=== PATIENT | female | born 1945 | race Caucasian/White ===

== ENCOUNTER → 2019-11-08 15:24 | Outpatient (CLI) | payer OTHER, SELFPAY ==
--- NOTE | 2019-11-08 | DI.MRI.S_ITS ---
PROCEDURE: MR SHOULDER RT WO CON INDICATIONS: Strain of unspecified muscle, fascia and tendon TECHNIQUE: Noncontrast oblique coronal T2 fast spin echo with fat saturation, oblique sagittal T1 spin echo and T2 fast spin echo with fat saturation, axial T1 spin echo and T2 fast spin echo with fat saturation through the shoulder. COMPARISON: None. FINDINGS: Image quality: Moderately degraded by patient motion on multiple sequences. Diagnostic information is obtained. Rotator cuff: Postsurgical changes are seen from rotator cuff repair with a suture anchor at the greater tuberosity. A large full-thickness defect is seen posterior to the suture anchor involving the majority of the supraspinatus tendon in the anterior fibers of the infraspinatus tendon measuring 1.2 cm in anterior-posterior dimension with proximal tendon retraction measuring up to 2 cm. A few attenuated anterior fibers of the supraspinatus tendon may remain in continuity with the fixation device. There is tendinosis of the posterior infraspinatus tendon. The teres minor tendon is intact. The subscapularis tendon demonstrates tendinosis and low grade intrasubstance tearing distally. There is no significant rotator cuff muscle atrophy. Bones and bursae: No acute bone marrow contusions or fractures. Traction cystic changes are seen in the posterosuperior humeral head as well as the greater and lesser tuberosities. There is a moderate glenohumeral joint effusion that communicates with the subacromial/subdeltoid bursa. Thinning of the lateral acromion is most likely related to a prior acromioplasty. There is no recurrent narrowing of the supraspinatus outlet. Capsule and soft tissues: There is nondisplaced tearing of the superior to posterosuperior labrum. The long head of the biceps tendon demonstrates severe tendinosis of the intra-articular portion. The rotator interval appears normal, without fibrosis. The inferior glenohumeral ligament is normal in thickness. IMPRESSION: 1. Postsurgical changes from rotator cuff tendon repair with recurrent full-thickness tearing of the majority of the supraspinatus tendon and the anterior fibers of the infraspinatus tendon , which measures 1.2 cm in anterior-posterior dimension with up to 2 cm of proximal tendon retraction. A few anterior supraspinatus tendon fibers may remain in continuity with the fixation device. 2. Low-grade intrasubstance tearing and tendinosis of the subscapularis tendon. Moderate infraspinatus tendinosis. 3. Severe biceps long head tendinosis. 4. Nondisplaced tearing of the superior to posterosuperior labrum. 5. Moderate glenohumeral effusion communicates with the subacromial/subdeltoid and subcoracoid bursa. Dictated by: Varun Kumar M.D. on 11/08/2019 at 16:38 Approved by: Varun Kumar M.D. on 11/08/2019 at 16:56
== END ==
PROVIDERS: Referring Provider Physician Assistant Medical; Visit Provider Physician Assistant Medical
DX: S46.011A Strain of muscle(s) and tendon(s) of the rotator cuff of right shoulder, initial encounter (principal); S43.491A Other sprain of right shoulder joint, initial encounter; M25.411 Effusion, right shoulder; X58.XXXA Exposure to other specified factors, initial encounter
CPT/HCPCS: 73221

== ENCOUNTER 2020-09-04 19:11 | Emergency (ER) | payer MEDICARE, SELFPAY ==
--- NOTE | 2020-09-04 19:15 | ED_ITS ---
HPI - Extremity Injury (Lower) General Chief Complaint: Wound/Laceration Stated Complaint: hole in left leg not getting better Time Seen by Provider: 09/04/20 19:12 History of Present Illness HPI Narrative: 75-year-old female nonsmoker with history of throat cancer, hypertension and hypothyroid presents the request of her primary care provider for evaluation of a poorly healing wound on her left anterior kumar for the past week or so. She states that she had been walking in her room when she caught her leg on her bed frame and since then has had this mildly painful, occasionally bleeding wound on her mid kumar. She has been treating at home with various [id number] methods and presented to her primary care provider today for evaluation as it has not healed appropriately. She denies any systemic findings such as fever, chills nor nausea or vomiting. She has not taken any antibiotics and takes no immune suppressing therapies. She is otherwise well and free of complaint. Related Data Home Medications Medication Instructions Recorded Confirmed carvedilol 3.125 mg tablet 3.125 mg PO BID 06/13/20 09/04/20 epinephrine 0.3 mg/0.3 mL 0.3 mg IM ONCE 06/13/20 09/04/20 injection syringe hydrocodone 5 mg-acetaminophen 325 1 tab PO BEDTIME PRN 06/13/20 09/04/20 mg tablet levothyroxine 112 mcg capsule 112 mcg PO DAILY 06/13/20 09/04/20 temazepam 15 mg capsule 15 mg PO BEDTIME 06/13/20 09/04/20 valacyclovir 500 mg tablet 500 mg PO DAILY 06/13/20 09/04/20 Previous Rx's Medication Instructions Recorded amoxicillin 875 mg-potassium 1 tab PO BID #20 tab 09/04/20 clavulanate 125 mg tablet (Augmentin) Allergies Allergy/AdvReac Type Severity Reaction Status Date / Time bee venom protein (honey bee) Allergy Unknown Verified 09/04/20 16:09 cyclobenzaprine Allergy Unknown Verified 09/04/20 16:09 [From Flexeril] lisinopril Allergy Unknown Verified 09/04/20 16:09 trazodone Allergy Unknown Verified 09/04/20 16:09 Hydroxycitric Acid Allergy Unknown Uncoded 09/04/20 16:09 Review of Systems Review of Systems Narrative: GENERAL: Denies chills, fatigue, malaise, fever, sweats. HEENT: Denies sinus pain, ear pain, sore throat, difficulty swallowing, dizziness. RESPIRATORY: Denies dyspnea, cough, wheezing, hemoptysis, sputum. CARDIOVASCULAR: Denies chest pain, palpitations, orthopnea, edema, GASTROINTESTINAL: Denies nausea, vomiting, abdominal pain, diarrhea, constipation, melena. : Denies dysuria, frequency, incontinence, hematuria, urinary retention. MUSCULOSKELETAL: denies weakness, joint pain, or bony pain SKIN: See HPI NEUROLOGIC: Denies weakness, headache, numbness, change in speech, confusion, seizures, incoordination. PSYCHIATRIC: No concerning psychosocial issues. 12 point review of systems is negative except for those stated above Patient History Social History Smoking Status: Never smoker Smoking Status: Never smoker Exam Narrative Exam Narrative: GENERAL: [75] year old patient appears stated age. Well- developed patient, in mild distress. HEAD: Atraumatic. Normocephalic. EYES: Pupils equal round and reactive. Extraocular motions intact. No scleral icterus. No injection or drainage. ENT: Nose without bleeding, purulent drainage. Throat without erythema, tonsillar hypertrophy or exudate. Airway patent. NECK: Trachea midline. Non tender CARDIOVASCULAR: Regular rate and rhythm without murmurs, gallops, or rubs. RESPIRATORY: Clear to auscultation. Breath sounds equal bilaterally. No wheezes, rales, or rhonchi. GASTROINTESTINAL: Abdomen soft, non-tender, nondistended. EXTREMITIES: No edema or joint tenderness. BACK: Nontender without deformity or crepitance. No flank tenderness. NEURO: AOx3. SKIN: Deep circular wound left anterior kumar measuring 1.5 x 1 cm, minimal surrounding erythema, no fluctuance or induration. No evidence of foreign body. Painful when probing, bleeding occurs with culture. Initial Vital Signs Initial Vital Signs: Vital Signs Temperature 98.9 F 09/04/20 19:20 Pulse Rate 58 L 09/04/20 19:20 Respiratory Rate 16 09/04/20 19:20 Blood Pressure 151/73 H 09/04/20 19:20 Pulse Oximetry 99 09/04/20 19:20 Course Orders Ordered: ED Orders 09/04/20 19:19 XR tibia fibula LT 2V Stat 07/14/21 19:20 Wound Culture and Gram Stain Stat 09/04/20 19:40 Consult to Wound Care Stat Discontinued Medications Amoxicillin/Clavulanate Potassium (Amoxicillin/Clav 875/125 Mg) 1 tab PO NOW ONE Stop: 09/04/20 19:55 Last Admin: 09/04/20 19:59 Dose: 1 tab Documented by: BELLA Vital Signs Vital signs: Vital Signs - 8 hr 09/04/20 19:20 Temperature 98.9 F Pulse Rate 58 L Respiratory Rate 16 Blood Pressure 151/73 H Pulse Oximetry 99 MDM - Extremity Injury (Lower) Imaging Data Extremity x-ray #1: Radiologist's Impression: [address] [id number] ReportSigned Patient: Leslee Silverio PMR#: [id number]: 8Acct:[id number]/Sex: 75 / FDate of Service: 09/04/20Loc: EDAccession Number: [id number] Procedure: XR tibia fibula LT 2V Ordering Provider: Lenin Gann D.O. PROCEDURE: XR TIBIA FIBULA LT 2V INDICATIONS: deep poorly healing wound x7 days TECHNIQUE: 2 views of the tibia and fibula were acquired. COMPARISON: None. FINDINGS: Bones: No fractures or dislocations. No discrete bony erosions or periosteal reaction. No suspicious bony lesions. Soft tissues: There is a soft tissue ulcer along the anterior medial aspect of the left lower leg. No suspicious soft tissue calcifications or masses. IMPRESSION: 1. No radiographic evidence of osteomyelitis. Dictated by: Jericho Hernández M.D. on 09/04/2020 at 20:10 Approved by: Jericho Hernández M.D. on 09/04/2020 at 20:11 ECG Data Pacemaker model: [address] [id number] ReportSigned Kizzy [facility] Narrative Medical decision making narrative: patient with a poorly healing wound of her left anterior kumar, no systemic findings, no sepsis, no evidence of foreign tyson dy, osteomyelitis or underlying fracture. No abscess or widespread infection. Wound culture obtained, dressing applied, antibiotics administered and wound care referral has been faxed. She has been given return precautions and had questions answered to her apparent satisfaction Discharge Plan Departure Patient Disposition: Home Clinical Impression: Wound, open, leg Qualifiers: Encounter type: initial encounter Laterality: left Qualified Code(s): S81.802A - Unspecified open wound, left lower leg, initial encounter Instructions: DI for Wound Infection Activity Restrictions/Additional Instructions: *You have been diagnosed with [poorly healing left leg wound] *What to do: *Please continue to take your regular medications as directed. [ x] New medication prescriptions sent to your pharmacy: [ [facility]] [ ] New medication written as a paper prescription [ ] No new medications given *Please follow up with wound care provider in 2-3 days, call for an appointment. Let them know you were seen in the Emergency Department and that we ask that you be seen in follow up. We will electronically transmit a record of today's note and have faxed a request for referral *If you do not have a primary care provider please contact the [facility] Resource line at [phone]. They will ask some questions about your medical history and help get you set up with a doctor in the community. *Return to Emergency Department if you should have any new, worsening or concerning symptoms, such as [fever greater than 101 F, shaking chills, worsening pain, persistent vomiting or other bothersome symptoms] Prescriptions: New amoxicillin-pot clavulanate [Augmentin] 875-125 mg tablet 1 tab PO BID Qty: 20 RF: 0 No Action carvedilol 3.125 mg tablet 3.125 mg PO BID RF: 0 epinephrine 0.3 mg/0.3 mL syringe 0.3 mg IM ONCE RF: 0 hydrocodone-acetaminophen 5-325 mg tablet 1 tab PO BEDTIME PRNRF: 0 levothyroxine 112 mcg capsule 112 mcg PO DAILY RF: 0 temazepam 15 mg capsule 15 mg PO BEDTIME RF: 0 valacyclovir 500 mg tablet 500 mg PO DAILY RF: 0 Referrals: Kelly Snyder PA-C [Primary Care Provider] -
--- NOTE | 2020-09-04 19:19 | DI.RAD.S_ITS ---
PROCEDURE: XR TIBIA FIBULA LT 2V INDICATIONS: deep poorly healing wound x7 days TECHNIQUE: 2 views of the tibia and fibula were acquired. COMPARISON: None. FINDINGS: Bones: No fractures or dislocations. No discrete bony erosions or periosteal reaction. No suspicious bony lesions. Soft tissues: There is a soft tissue ulcer along the anterior medial aspect of the left lower leg. No suspicious soft tissue calcifications or masses. IMPRESSION: 1. No radiographic evidence of osteomyelitis. Dictated by: Jericho Hernández M.D. on 09/04/2020 at 20:10 Approved by: Jericho Hernández M.D. on 09/04/2020 at 20:11
[2020-09-04 19:20] VITALS: BP 151/73; PULSE 58; RESP 16; TEMP 37.2; O2SAT 99
[2020-09-04] MEDS: AMOXICILLIN/CLAV 875/125 MG 1 TAB PO (19:59)
[2020-09-04 20:30] VITALS: BP 144/65; PULSE 64; RESP 20; O2SAT 97
== END 2020-09-04 20:31 | disposition home or self-care (01) ==
PROVIDERS: Emergency Provider Emergency Medicine; PCP Physician Assistant Medical
DX: S81.802A Unspecified open wound, left lower leg, initial encounter (principal)
CPT/HCPCS: 73590; 87070; 87075; 87205; 99283

== ENCOUNTER → 2021-09-11 11:08 | Outpatient (CLI) | payer MEDICARE, SELFPAY ==
[2021-09-11 20:17] LABS: Cholesterol 211 mg/dL (140-199); HDL Cholesterol 66 mg/dL (40-60); Triglycerides 77 mg/dL (35-150)
[2021-09-11 20:29] LABS: LDL Cholesterol Direct 118 mg/dL (<100)
[2021-09-11 20:50] LABS: TSH w/ Reflex to FT4 0.62 uIU/mL (0.47-4.68)
== END ==
PROVIDERS: PCP Physician Assistant Medical
DX: E03.8 Other specified hypothyroidism (principal); E78.2 Mixed hyperlipidemia
CPT/HCPCS: 82465; 83718; 83721; 84443; 84478

== ENCOUNTER → 2023-06-24 10:06 | Outpatient (CLI) | payer MEDICARE, SELFPAY ==
[2023-06-24 19:51] LABS: Cholesterol 259 mg/dL (140-199)
== END ==
PROVIDERS: PCP Physician Assistant Medical; Visit Provider Internal Medicine
DX: E78.2 Mixed hyperlipidemia (principal); E03.8 Other specified hypothyroidism
CPT/HCPCS: 82465; 84439; 84443

== ENCOUNTER → 2023-11-30 11:01 | Outpatient (CLI) | payer MEDICARE, SELFPAY ==
[2023-11-30 19:03] LABS: Add Manual Diff / Slide Review NO; Basophils Absolute Auto 100 /uL (0-100); Basophils Percent Auto 1.7 % (0-2); Eosinophils Absolute Auto 200 /uL (0-450); Eosinophils Percent Auto 3.3 % (2-4); Hematocrit 42.4 % (36-46); Hemoglobin 14.3 g/dL (12.0-16.0); Lymphocytes Absolute Auto 1200 /uL (1100-4500); Lymphocytes Percent Auto 25.3 % (25-40); Mean Corpuscular HGB Conc 33.7 % (30-36); Mean Corpuscular Hemoglobin 31.6 PG (26-34); Mean Corpuscular Volume 93.7 fL (80-100); Monocytes Absolute Auto 600 /uL (0-900); Monocytes Percent Auto 11.9 % (3-14); Neutrophils Absolute Auto 2700 /uL (1500-7000); Neutrophils Percent Auto 57.8 % (50-75); Platelet Count 148 X10^3/uL (150-400); Red Blood Cell Count 4.53 X10^6/uL (4.0-5.2); Red Cell Distribution Width 13.6 % (11.6-14.8); White Blood Cell Count 4.7 X10^3/uL (4.5-11.0)
[2023-11-30 20:23] LABS: Alanine Aminotransferase 20 IU/L (<35); Albumin 4.4 g/dL (3.5-5.0); Albumin Globulin Ratio 1.6 (1.0-2.8); Alkaline Phosphatase 76 U/L (38-126); Aspartate Aminotransferase 40 IU/L (14-36); BUN Creatinine Ratio 25.5 (6-22); Bilirubin Total 0.6 mg/dL (0.2-1.3); Blood Urea Nitrogen 24 mg/dL (7-17); Calcium 9.7 mg/dL (8.4-10.2); Carbon Dioxide 31 mmol/L (22-32); Chloride 100 mmol/L (98-107); Cholesterol 241 mg/dL (140-199); Estimated Glomerular Filt Rate > 60 mL/min (>60); Globulin 2.7 g/dL (1.7-4.1); Glucose 90 mg/dL (80-110); HDL Cholesterol 83 mg/dL (40-60); HEMOLYSIS < 15 (0-50); Potassium 4.1 mmol/L (3.4-5.1); Sodium 139 mmol/L (137-145); Total Protein 7.1 g/dL (6.3-8.2); Triglycerides 85 mg/dL (35-150)
[2023-11-30 20:34] LABS: LDL Cholesterol Direct 130 mg/dL (<100)
[2023-11-30 21:32] LABS: Free T4, Direct Thyroxine 1.68 ng/dL (0.78-2.19)
== END ==
PROVIDERS: PCP Physician Assistant Medical; Visit Provider Internal Medicine
DX: E03.9 Hypothyroidism, unspecified (principal); Z85.01 Personal history of malignant neoplasm of esophagus; E78.2 Mixed hyperlipidemia
CPT/HCPCS: 80061; 80053; 82465; 83718; 83721; 84439; 84443; 84478; 85025